=== PATIENT | female | born 1935 | race Two or more races ===

== ENCOUNTER 2018-08-17 13:53 | Inpatient (IN) | payer MEDICARE, OTHER ==
[~2018-08-17] VITALS: Ht 154.9 cm; Wt 65.3 kg
--- NOTE | 2018-08-17 13:55 | NUR ---
BIBRA FOR SYNCOPE WHILE IN WHEELCHAIR WITH SON, SON BEGAN CPR; NOW ALTERED, ALSO C/O GENERALIZED WEAKNESS x 2 DAYS AND PAINFUL URINATION. AOx1 UPON ARRIVAL IN ED. SON AT BEDSIDE. IV PERIPHERAL ACCESS AT LH 20G. TO ER BED 8, RESPIRATIONS EVEN AND UNLABORED, HOOKED TO MONITOR, CHANGED TO GOWN, PROVIDED WITH WARM BLANKET, AWAITING MD BLISS.
--- NOTE | 2018-08-17 14:18 | NUR ---
DR MACDONALD AT BEDSIDE
[2018-08-17] MEDS ORDERED: IV NS 0.9% 1,000 ML BAG IV ONE (14:30)
[2018-08-17 14:42] LABS: BASOPHILS % (AUTO) 0.5 % (0.0-2.0); EOSINOPHILS % (AUTO) 2.8 % (0.0-6.0); HEMATOCRIT 34 % (33-45); HEMOGLOBIN 11.9 g/dL (11.5-14.8); MEAN CORPUSCULAR HGB CONC 35 g/dl (31.0-36.0); MEAN CORPUSCULAR VOLUME 85 fL (82-100); MONOCYTES # (AUTO) 0.5 /CMM (0.1-1.30); MONOCYTES % (AUTO) 6.2 % (2.0-12.0); NEUTROPHILS # (AUTO) 5.7 /CMM (1.8-8.9); NEUTROPHILS % (AUTO) 77.5 % (43.0-81.0); PLATELET COUNT (AUTO) 193 /CMM (150-450); WHITE BLOOD COUNT (AUTO) 7.4 K/uL (4.3-11.0)
[2018-08-17] MEDS ORDERED: ROSU5TAB PO (14:43)
[2018-08-17] MEDS ORDERED: SENN-18 PO (14:43)
[2018-08-17] MEDS ORDERED: QUET25TA PO (14:43)
[2018-08-17] MEDS ORDERED: RANO500T3 PO (14:43)
[2018-08-17] MEDS ORDERED: CARV3.12 PO (14:43)
[2018-08-17] MEDS ORDERED: LISI10TA5 PO (14:43)
[2018-08-17] MEDS ORDERED: TRAZ-214 PO (14:43)
[2018-08-17] MEDS ORDERED: PANT40TA2 PO (14:43)
[2018-08-17] MEDS ORDERED: METO-295 PO (14:43)
[2018-08-17] MEDS ORDERED: FOLI1TAB16 PO (14:43)
[2018-08-17] MEDS ORDERED: MEMA10TA PO (14:43)
[2018-08-17] MEDS ORDERED: HYDR20VI4 PO (14:43)
[2018-08-17] MEDS ORDERED: CLON0.1T PO (14:43)
[2018-08-17 14:46] LABS: CARBON DIOXIDE 30 mmol/L (21-32); CHLORIDE 102 mmol/L (98-107); CREATININE 1.5 mg/dL (0.6-1.3); GLUCOSE 113 mg/dL (74-106); POTASSIUM 3.9 mmol/L (3.5-5.1); SODIUM SERUM 139 mmol/L (136-145); UREA NITROGEN, BLOOD 18 mg/dL (7-18)
[2018-08-17] MEDS ORDERED: CLON1TAB12 PO (14:47)
[2018-08-17] MEDS ORDERED: AMLO5TAB4 PO (14:47)
[2018-08-17] MEDS ORDERED: ASPI-605 PO (14:47)
[2018-08-17 15:00] LABS: ALANINE AMINOTRANSFERASE 19 U/L (12-78); ALBUMIN 3.7 g/dL (3.4-5.0); ALKALINE PHOSPHATASE 58 U/L (46-116); ASPARTATE AMINOTRANSFERASE 20 U/L (15-37); B-TYPE NATRIURETIC PEPTIDE 2799 PG/ML (0-125); BILIRUBIN,DIRECT 0.1 mg/dL (0.0-0.2); BILIRUBIN,TOTAL 0.4 mg/dL (0.2-1.0); TOTAL PROTEIN, SERUM 8.1 g/dL (6.4-8.2)
[2018-08-17 15:23] LABS: BILIRUBIN,URINE Negative (NEGATIVE); BLOOD, URINE Small Ery/uL (NEGATIVE); COLOR,URINE Yellow (YELLOW); KETONES,URINE Negative (NEGATIVE); LEUKOCYTE ESTERASE ,URINE Negative (NEGATIVE); NITRITE, URINE Negative (NEGATIVE); PH,URINE 7.5 (5.0-8.0); PROTEIN,URINE Negative (NEGATIVE); UGLUCOSE Negative (NEGATIVE); UROBILINOGEN,URINE 0.2 EU/dL (0.2)
[2018-08-17 15:33] LABS: APPEARANCE,URINE HAZY (CLEAR)
[2018-08-17 15:34] LABS: BACTERIA,URINE None seen /HPF (None Seen); SQUAMOUS EPITHELIAL CELL,UR Few /HPF (None Seen); WBC,URINE 0-2 /HPF (0-3)
--- NOTE | 2018-08-17 15:47 | NUR ---
ORDERS REC'D FROM DR. BERGERON FOR ADMISSION TO TELE.
[2018-08-17] MEDS ORDERED: hydrALAZINE HCL 10 MG TABLET PO ONE (17:30)
--- NOTE | 2018-08-17 17:42 | NUR ---
REPORT GIVEN TO MARTHA STROUD FOR ADMISSION
[2018-08-17] MEDS ORDERED: ATORVASTATIN 10 MG TABLET PO SCH (18:20)
--- NOTE | 2018-08-17 18:20 | NUR ---
MUD GRINDER NOTES RECEIVED PATIENT VIA GHADA CARROLL AT BEDSIDE. PATIENT SLOVENIAN SPEAKING. PATIENT ALERT, ORIENTED X1. ORIENTED TO ROOM. CALL LIGHT WITHIN REACH. BED IN LOW LOCKED POSITION. FAMILY REPORTS PATIENT WAS IN HER WHEELCHAIR WHERE SHE HAD A SYNCOPAL EPISODE 911 WAS CALLED AND PATIENT WAS BROUGHT TO ER. PATIENTS FAMILY REPORTS LAST TIME PATIENT WAS HOSPITALIZED WAS 3 MONTHS AGO DUE TO A FALL. PATIENT WITH PERIPHERAL IV LEFT AC INTACT PATENT. WILL ENDORSE TO PM SHIFT TODD.
[2018-08-17 18:30] VITALS: BP 149/71
--- NOTE | 2018-08-17 19:35 | NUR ---
TELE/RN OPENING NOTES PT RECEIVED AWAKE, FAMILY AT BEDSIDE. SAO TOMEAN SPEAKING. CONFUSED PER FAMILY AND SAO TOMEAN SPEAKING STAFF MEMBER. ON ROOM AIR, BREATHING EVEN AND UNLABORED. WAS AT CT FOR CHEST/ABDOMEN/PELVIS. AWAITING RESULTS. IV TO LEFT HAND #20 PATENT AND INTACT. ON TELE MONITOR SHOWING SR 90'S. HOB ELEVATED. REORIENTED PT TO ROOM AND CALL LIGHT. BED IN LOW/LOCKED POSITION WITH CALL LIGHT IN REACH. SIDE RAILS UPX3 AND BED ALARM ON FOR SAFETY. WILL CONTINUE TO MONITOR
[2018-08-17 20:00] VITALS: BP 152/89
--- NOTE | 2018-08-17 20:00 | NUR ---
CONTACT #'S FRANDY (SON) [phone] KERRY (GRANDSON) [phone]
[2018-08-17] MEDS ORDERED: TRAZODONE 50 MG TABLET PO PRN (22:00)
[2018-08-17] MEDS: SENNOSIDES 8.6 MG TABLET PO SCH (22:03)
[2018-08-18] VITALS: BP 144/75
[2018-08-18 04:00] VITALS: BP_SYST 156; BP_SYST 160; BP_DIAS 72; BP_DIAS 80
--- NOTE | 2018-08-18 04:00 | NUR ---
ORTHOSTATICS LAYING- 160/80, HR 78 SITTING- 156/72, HR 72 STANDING- UNABLE
--- NOTE | 2018-08-18 06:15 | NUR ---
CT CHEST/ABD/PELVIS RESULT RECEIVED CALL FROM RADIOLOGY, MD DINERO. NOTIFIED ME OF RESULT, SHOWING BLADDER WALL THICKENING WHICH MAY BE A MASS OR HEMATOMA. WILL ENDORSE TO DAY SHIFT RN TO NOTIFY HOSPITALIST
--- NOTE | 2018-08-18 06:57 | NUR ---
TELE/RN CLOSING NOTES PT RESTING COMFORTABLY IN BED. A/OX1. REMAINS ON ROOM AIR, BREATHING EVEN AND UNLABORED. IN NO ACUTE DISTRESS. REMAINS ON TELE MONITOR SHOWING SR WITH PVC 70. NO SIGNIFICANT CHANGES OVERNIGHT. TURNED/REPOSITIONED Q2H. IV TO LEFT HAND PATENT AND INTACT. BED REMAINS IN LOW/LOCKED POSITION WITH CALL LIGHT IN REACH. SIDE RAILS UPX3 AND BED ALARM ON FOR SAFETY. WILL ENDORSE TO DAY SHIFT RN TODD.
[2018-08-18 08:00] VITALS: BP 180/90
--- NOTE | 2018-08-18 08:00 | NUR ---
POULTRY FIELD SERVICE TECHNICIAN NOTES PATIENT IN BED RESTING NO SOB OR ACUTE DISTRESS NOTED. PATIENT ALERT, ORIENTED X1 CONFUSED. PERIPHERAL IV INTACT PATENT. BED IN LOW LOCKED POSITION. CALL LIGHT WITHIN REACH. WILL CONTINUE TO MONITOR.
[2018-08-18] MEDS: MEMANTINE HCL 5 MG TABLET PO SCH (08:42)
[2018-08-18] MEDS: ASPIRIN EC 81 MG TABLET.DR PO SCH (08:42)
[2018-08-18] MEDS: PANTOPRAZOLE 40 MG TABLET.DR PO SCH (08:42)
[2018-08-18] MEDS: clonazePAM 1 MG TABLET PO SCH ×2 (08:42→16:33)
[2018-08-18] MEDS ORDERED: FOLIC ACID 1 MG TABLET PO SCH (09:00)
[2018-08-18] MEDS ORDERED: LISINOPRIL (10MG) 10 MG TABLET PO SCH (09:00)
[2018-08-18] MEDS ORDERED: AMLODIPINE BESYLATE 5 MG TABLET PO SCH (09:00)
[2018-08-18] MEDS ORDERED: IV NS 0.9% 1,000 ML IV PRN (09:26)
[2018-08-18 10:48] LABS: MAGNESIUM 1.8 mg/dL (1.8-2.4); PHOSPHORUS 2.7 mg/dL (2.5-4.9)
[2018-08-18 11:04] LABS: FERRITIN 103 ng/mL (8-388); THYROID STIMULATING HORMONE 6.445 uIU/mL (0.358-3.74)
[2018-08-18 11:30] LABS: IRON, SERUM 43 ug/dl (50-175); TOTAL IRON BINDING CAPACITY 193 ug/dl (250-450)
[2018-08-18] MEDS ORDERED: CLONIDINE HCL 0.3 MG/24H PTWK 1 EA PATCH TD SCH (13:00)
[2018-08-18 16:00] VITALS: BP 163/79
[2018-08-18] MEDS: AMLODIPINE BESYLATE 5 MG TABLET PO SCH (17:19)
--- NOTE | 2018-08-18 18:40 | NUR ---
FACULTY DEAN NOTES PATIENT IN BED RESTING NO SOB OR ACUTE DISTRESS NOTED. ALERT, ORIENTED X1. ALL DUE MEDICATIONS ADMINISTERED. ALL NEEDS MET. WILL ENDORSE TO PM SHIFT TODD.
--- NOTE | 2018-08-18 19:35 | NUR ---
RN OPENING NOTES RECEIVED REPORT FROM DAYSHIFT RN. FOUND Pt AWAKE, RESTING IN BED. NO S/S OF ACUTE DISTRESS OR SOB NOTED. RESPIRATIONS EVEN AND UNLABORED. Pt IS A/OX1, VERY CONFUSED, BASELINE DEMENTIA, [place] SPEAKING ONLY. IV ACCESS ON RFA #20G, SL. SITTER ORDERED FOR Pt. ON TELE MONITOR. TELE READING SR/ST 103. SAFETY MEASURES IN PLACE. BED LOW, LOCKED, HOB ELEVATED, SIDE RAILS UP, BED ALARM ON. WILL CONTINUE TO MONITOR Pt's CONDITION AND SAFETY THROUGHOUT THE NIGHT.
[2018-08-18 20:00] VITALS: BP 141/67
[2018-08-18] MEDS: SENNOSIDES 8.6 MG TABLET PO SCH (22:41)
[2018-08-19] VITALS: BP 139/82
--- NOTE | 2018-08-19 07:00 | NUR ---
RN CLOSING NOTES NO SIGNIFICANT CHANGES IN Pt's CONDITION. Pt REMAINS STABLE AT THIS TIME. NO S/S OF ACUTE DISTRESS OR SOB NOTED DURING THE NIGHT. Pt IS CURRENTLY RESTING IN BED. RESPIRATIONS EVEN AND UNLABORED WITH EQUAL CHEST RISE AND FALL. ALL NEEDS MET AND ATTENDED TO. SAFETY MEASURES IN PLACE. SITTER AT BEDSIDE. BED LOW, LOCKED, HOB ELEVATED, SIDE RAILS UP, BED ALARM ON. TELE READING SR 95. WILL ENDORSE TO DAYSHIFT RN FOR Pt's TODD.
[2018-08-19 07:26] LABS: BASOPHILS % (AUTO) 0.6 % (0.0-2.0); EOSINOPHILS % (AUTO) 2.6 % (0.0-6.0); HEMATOCRIT 37 % (33-45); HEMOGLOBIN 12.6 g/dL (11.5-14.8); LYMPHOCYTES # (AUTO) 1.7 /CMM (0.8-4.8); LYMPHOCYTES % (AUTO) 24.7 % (20.0-44.0); MEAN CORPUSCULAR HGB CONC 34 g/dl (31.0-36.0); MEAN CORPUSCULAR VOLUME 85 fL (82-100); MONOCYTES # (AUTO) 0.5 /CMM (0.1-1.30); MONOCYTES % (AUTO) 6.8 % (2.0-12.0); NEUTROPHILS # (AUTO) 4.6 /CMM (1.8-8.9); NEUTROPHILS % (AUTO) 65.3 % (43.0-81.0); PLATELET COUNT (AUTO) 195 /CMM (150-450); RED BLOOD CELL COUNT(AUTO) 4.34 MIL/uL (4.0-5.2); WHITE BLOOD COUNT (AUTO) 7.1 K/uL (4.3-11.0)
[2018-08-19 07:29] LABS: ALANINE AMINOTRANSFERASE 16 U/L (12-78); ALBUMIN 3.7 g/dL (3.4-5.0); ALKALINE PHOSPHATASE 57 U/L (46-116); ASPARTATE AMINOTRANSFERASE 18 U/L (15-37); BILIRUBIN,TOTAL 0.5 mg/dL (0.2-1.0); CALCIUM, SERUM 9.1 mg/dL (8.5-10.1); CARBON DIOXIDE 29 mmol/L (21-32); CHLORIDE 103 mmol/L (98-107); CREATININE 1.1 mg/dL (0.6-1.3); GLUCOSE 109 mg/dL (74-106); MAGNESIUM 1.8 mg/dL (1.8-2.4); PHOSPHORUS 3.4 mg/dL (2.5-4.9); POTASSIUM 3.6 mmol/L (3.5-5.1); SODIUM SERUM 140 mmol/L (136-145); TOTAL PROTEIN, SERUM 7.9 g/dL (6.4-8.2); UREA NITROGEN, BLOOD 13 mg/dL (7-18)
[2018-08-19 08:00] VITALS: BP_SYST 106; BP_SYST 166; BP_DIAS 55; BP_DIAS 89
[2018-08-19] MEDS: PANTOPRAZOLE 40 MG TABLET.DR PO SCH (08:23)
[2018-08-19] MEDS: ASPIRIN EC 81 MG TABLET.DR PO SCH (08:24)
[2018-08-19] MEDS: CARVEDILOL 12.5 MG TABLET PO SCH ×2 (08:24→21:50)
[2018-08-19] MEDS: MEMANTINE HCL 5 MG TABLET PO SCH (08:24)
[2018-08-19] MEDS: clonazePAM 1 MG TABLET PO SCH ×2 (08:26→17:23)
[2018-08-19] MEDS: AMLODIPINE BESYLATE 5 MG TABLET PO SCH (17:23)
--- NOTE | 2018-08-19 18:31 | NUR ---
A NEW IV LINE TO THE LEFT FOREARM G22
--- NOTE | 2018-08-19 19:21 | NUR ---
NO CHANGES IN Pt's CONDITION. Pt STABLE on room air . NO S/S OF ACUTE DISTRESS OR SOB NOTED. ALL NEEDS ATTENDED TO. SAFETY MEASURES IN PLACE. SITTER AT BEDSIDE. BED LOW, LOCKED, HOB ELEVATED, SIDE RAILS UP, BED ALARM ON.WILL ENDORSE TO NEXT SHIFT FOR TODD.
--- NOTE | 2018-08-19 19:35 | NUR ---
RN OPENING NOTES RECEIVED REPORT FROM DAYSHIFT RN. FOUND Pt AWAKE, RESTING IN BED. NO S/S OF ACUTE DISTRESS OR SOB NOTED. RESPIRATIONS EVEN AND UNLABORED. Pt IS A/OX1, VERY CONFUSED, BASELINE DEMENTIA, [place] SPEAKING ONLY. IV ACCESS ON LFA #22G, SL. SAFETY MEASURES IN PLACE. BED LOW, LOCKED, HOB ELEVATED, SIDE RAILS UP, BED ALARM ON. WILL CONTINUE TO MONITOR Pt's CONDITION AND SAFETY THROUGHOUT THE NIGHT.
[2018-08-19 20:00] VITALS: BP 157/70
[2018-08-19 20:52] VITALS: BP 157/70
[2018-08-19] MEDS: SENNOSIDES 8.6 MG TABLET PO SCH (21:50)
[2018-08-19] MEDS: MUPIROCIN OINT 2% 22 GM TUBE SCH (21:52)
[2018-08-20 06:29] LABS: BASOPHILS % (AUTO) 0.4 % (0.0-2.0); EOSINOPHILS % (AUTO) 1.5 % (0.0-6.0); HEMATOCRIT 36 % (33-45); HEMOGLOBIN 12.5 g/dL (11.5-14.8); LYMPHOCYTES # (AUTO) 1.7 /CMM (0.8-4.8); LYMPHOCYTES % (AUTO) 19.7 % (20.0-44.0); MEAN CORPUSCULAR HGB CONC 34 g/dl (31.0-36.0); MEAN CORPUSCULAR VOLUME 84 fL (82-100); MONOCYTES # (AUTO) 0.7 /CMM (0.1-1.30); MONOCYTES % (AUTO) 7.8 % (2.0-12.0); NEUTROPHILS # (AUTO) 6.1 /CMM (1.8-8.9); NEUTROPHILS % (AUTO) 70.6 % (43.0-81.0); PLATELET COUNT (AUTO) 214 /CMM (150-450); RED BLOOD CELL COUNT(AUTO) 4.29 MIL/uL (4.0-5.2); WHITE BLOOD COUNT (AUTO) 8.7 K/uL (4.3-11.0)
--- NOTE | 2018-08-20 06:55 | NUR ---
RN CLOSING NOTES NO SIGNIFICANT CHANGES IN Pt's CONDITION. Pt REMAINS STABLE AT THIS TIME. NO S/S OF ACUTE DISTRESS OR SOB NOTED DURING THE NIGHT. Pt IS CURRENTLY RESTING IN BED. RESPIRATIONS EVEN AND UNLABORED WITH EQUAL CHEST RISE AND FALL. ALL NEEDS MET AND ATTENDED TO. SAFETY MEASURES IN PLACE. BED LOW, LOCKED, HOB ELEVATED, SIDE RAILS UP, BED ALARM ON. WILL ENDORSE TO DAYSHIFT RN FOR Pt's TODD.
[2018-08-20 07:09] LABS: CARBON DIOXIDE 28 mmol/L (21-32); CHLORIDE 105 mmol/L (98-107); GLUCOSE 125 mg/dL (74-106); MAGNESIUM 1.8 mg/dL (1.8-2.4); POTASSIUM 3.6 mmol/L (3.5-5.1); SODIUM SERUM 143 mmol/L (136-145); UREA NITROGEN, BLOOD 13 mg/dL (7-18)
[2018-08-20 08:00] VITALS: BP_SYST 104; BP_SYST 179; BP_DIAS 73; BP_DIAS 92
[2018-08-20] MEDS: CARVEDILOL 12.5 MG TABLET PO SCH ×2 (08:08→20:46)
[2018-08-20] MEDS: clonazePAM 1 MG TABLET PO SCH ×2 (08:08→16:04)
[2018-08-20] MEDS: PANTOPRAZOLE 40 MG TABLET.DR PO SCH (08:08)
[2018-08-20] MEDS: ASPIRIN EC 81 MG TABLET.DR PO SCH (08:08)
[2018-08-20] MEDS: MUPIROCIN OINT 2% 22 GM TUBE SCH ×2 (08:09→20:46)
[2018-08-20] MEDS: MEMANTINE HCL 5 MG TABLET PO SCH (08:09)
[2018-08-20] MEDS ORDERED: CLONIDINE HCL 0.1 MG TABLET PO PRN (12:30)
--- NOTE | 2018-08-20 12:30 | NUR ---
patient seen by DR. Sawyer. Family at bad side
[2018-08-20] MEDS: FLUCONAZOLE (100 MG) 100 MG TABLET PO SCH (13:55)
[2018-08-20] MEDS: DIVALPROEX SODIUM 125 MG TABLET.DR PO SCH ×2 (13:55→20:46)
[2018-08-20] MEDS: CEFTRIAXONE 1 G in IV D5W 50 ML IV SCH (14:30)
[2018-08-20 16:00] VITALS: BP 174/98
--- NOTE | 2018-08-20 16:00 | NUR ---
PRN Clonidine given due to BP 170/74
[2018-08-20] MEDS: AMLODIPINE BESYLATE 5 MG TABLET PO SCH (17:58)
--- NOTE | 2018-08-20 18:26 | NUR ---
PATIENT IN BED, REMAINS CONFUSED , ORIENTED X1 . NO S/S OF ACUTE DISTRESS OR SOB NOTED DURING THE SHIFT.RESPIRATIONS EVEN AND UNLABORED ON ROOM AIR. ALL NEEDS MET AND ATTENDED TO. SAFETY MEASURES IN PLACE. BED LOW, LOCKED, HOB ELEVATED, SIDE RAILS UP, BED ALARM ON. WILL ENDORSE TO NEXT SHIFT RN FOR Pt's TODD.
--- NOTE | 2018-08-20 19:30 | NUR ---
MS RN NOTES RECEIVED ON BED AWAKE,CONFUSED,A/O X1,TOOK OFF HER DIAPER AND THROW IT ON THE FLOOR.HAD BOWEL MOVEMENT,CLEAN AND APPLIES REMEDY/MEPILEX ON SACRAL AREA FOR REDNESS.SALINE LOCK LFA SECURED WITH ARM SLEEVE.ISOLATION PRECAUTION OBSERVED FOR MRSA NARES.BED ALARM FOR SAFETY.CALL LIGHT IN REACH.WILL CONTINUE TO MONITOR STATUS.
[2018-08-20 20:00] VITALS: BP 161/82
[2018-08-20] MEDS: SENNOSIDES 8.6 MG TABLET PO SCH (20:47)
--- NOTE | 2018-08-20 23:00 | NUR ---
MS RN NOTES CALM AND QUIET THIS TIME,SIDE RAILS UP X2 FOR SAFETY.
--- NOTE | 2018-08-21 05:00 | NUR ---
MS RN NOTES NO SIGNIFICANT CHANGE IN STATUS.BM SOFT X3,SACRAL REDNESS MANAGE WITH REMEDY.IN NO ACUTE DISTRESS.POSSIBLE D/C TODAY WHEN MEDICALLY STABLE.
--- NOTE | 2018-08-21 07:18 | NUR ---
MS RN NOTES ENDORSED TO RENATO STROUD FOR TODD
--- NOTE | 2018-08-21 07:30 | NUR ---
M/S RN NOTES PATIENT RESTING IN BED, ALERT AND ORIENTED X 1. NO RESPIRATORY DISTRESS NOTED. DENIES AND PAIN AT THIS TIME. SKIN WARM TO TOUCH. IV SL ON LFA #22G, INTACT AND PATENT, NO REDNESS, NO INFILTRATION NOTED. BED ON LOWEST LOCKED POSITION, CALL LIGHT WITHIN REACH. WILL CONTINUE TO MONITOR.
[2018-08-21 08:00] VITALS: BP 158/83
[2018-08-21] MEDS: FLUCONAZOLE (100 MG) 100 MG TABLET PO SCH (08:37)
[2018-08-21] MEDS: MEMANTINE HCL 5 MG TABLET PO SCH (08:38)
[2018-08-21] MEDS: CARVEDILOL 12.5 MG TABLET PO SCH ×2 (08:38→21:48)
[2018-08-21] MEDS: DIVALPROEX SODIUM 125 MG TABLET.DR PO SCH (08:38)
[2018-08-21] MEDS: clonazePAM 1 MG TABLET PO SCH ×2 (08:38→17:04)
[2018-08-21] MEDS: ASPIRIN EC 81 MG TABLET.DR PO SCH (08:38)
[2018-08-21] MEDS: PANTOPRAZOLE 40 MG TABLET.DR PO SCH (08:40)
[2018-08-21] MEDS: MUPIROCIN OINT 2% 22 GM TUBE SCH ×2 (08:52→21:59)
[2018-08-21] MEDS: CEFTRIAXONE 1 G in IV D5W 50 ML IV SCH (13:33)
[2018-08-21 16:00] VITALS: BP 122/67
[2018-08-21] MEDS: AMLODIPINE BESYLATE 5 MG TABLET PO SCH (17:04)
--- NOTE | 2018-08-21 18:18 | NUR ---
M/S RN NOTES PATIENT RESTING IN BED, ALERT AND ORIENTED X 1, NO RESPIRATORY DISTRESS NOTED, NO COMPLAINT OF PAINAT THIS TIME. SKIN WARM TO TOUCH, IV SL ON RAC #22G, INTACT AND PATENT. BED ON LOWEST LOCKED POSITION, CALL LIGHT WITHIN REACH. WILL ENDORSE TO ONCOMING NURSE.
--- NOTE | 2018-08-21 19:20 | NUR ---
MS/RN NOTES RECEIVED PT. LYING IN BED. PT. IS AWAKE, ALERT AND ORIENTED TO SELF. BREATHING EVEN AND UNLABORED ON ROOM AIR. NO SOB, RESPIRATORY DISTRESS OR COMPLAINTS OF PAIN NOTED AT THIS TIME. PT. WITH RIGHT AC 22 GAUGE IV SALINE LOCK PRESENT, PATENT AND INTACT. BED LOCKED AND IN LOWEST POSITION, SIDE RAILS UP X3, BED ALARM ON, CALL LIGHT WITHIN REACH, WILL CONTINUE TO MONITOR.
[2018-08-21 20:00] VITALS: BP 156/85
[2018-08-21] MEDS: SENNOSIDES 8.6 MG TABLET PO SCH (21:47)
--- NOTE | 2018-08-22 01:10 | NUR ---
MS/RN NOTES PT. IS LYING IN BED. PT. IS AWAKE, ALERT AND ORIENTED TO SELF. BREATHING EVEN AND UNLABORED ON ROOM AIR. NO SOB, RESPIRATORY DISTRESS OR COMPLAINTS OF PAIN NOTED AT THIS TIME. PT. WITH RIGHT AC 22 GAUGE IV SALINE LOCK PRESENT, PATENT AND INTACT. PT. WAS ATTEMPTING TO PULL OUT IV ACCESS AND ATTEMPTING TO GET OUT OF BED, PT. IS FALL RISK. PT. NOW WITH BILATERAL SOFT WRIST RESTRAINTS PRESENT AND INTACT. CIRCULATION CHECK PERFORMED. BED LOCKED AND IN LOWEST POSITION, SIDE RAILS UP X3, BED ALARM ON. GAVE REPORT AND ENDORSED PT. TO LUANNE MURILLO FOR CONTINUITY OF CARE.
--- NOTE | 2018-08-22 01:15 | NUR ---
CONTINUITY OF CARE Received patient in bed, awake, appears anxious. Patient attempted to get out from bed and pulled her IV peripheral cath multiple times per report. Patient is A/O to self only, poor judgment and concentration. Maintained safety, will cont to reassess the need for bilateral soft wrist restraints.
[2018-08-22] MEDS ORDERED: Z GUARD REMEDY 2 OZ OINT TP PRN (02:00)
[2018-08-22 06:12] LABS: BASOPHILS % (AUTO) 0.6 % (0.0-2.0); EOSINOPHILS % (AUTO) 2.9 % (0.0-6.0); HEMATOCRIT 33 % (33-45); HEMOGLOBIN 11.6 g/dL (11.5-14.8); LYMPHOCYTES # (AUTO) 2.1 /CMM (0.8-4.8); LYMPHOCYTES % (AUTO) 27.7 % (20.0-44.0); MEAN CORPUSCULAR HGB CONC 35 g/dl (31.0-36.0); MEAN CORPUSCULAR VOLUME 84 fL (82-100); MONOCYTES # (AUTO) 0.5 /CMM (0.1-1.30); MONOCYTES % (AUTO) 7.2 % (2.0-12.0); NEUTROPHILS # (AUTO) 4.6 /CMM (1.8-8.9); NEUTROPHILS % (AUTO) 61.6 % (43.0-81.0); PLATELET COUNT (AUTO) 234 /CMM (150-450); RED BLOOD CELL COUNT(AUTO) 3.96 MIL/uL (4.0-5.2); WHITE BLOOD COUNT (AUTO) 7.4 K/uL (4.3-11.0)
--- NOTE | 2018-08-22 06:19 | NUR ---
END OF SHIFT REPORT Patient in bed. Stable oxygen saturation on RA. On IV antibiotic as scheduled, VSS. A/O to self only when awake, with confusion, unable to participate with care, poor concentration and judgment, pulling out IV lines, not follow command. Maintained bilateral soft wrist restraint in place, reassessment every 2 hours, CSM intact in both hands. Contact precaution maintained, PPE utilized.
[2018-08-22 06:22] LABS: CALCIUM, SERUM 9.1 mg/dL (8.5-10.1); CARBON DIOXIDE 29 mmol/L (21-32); CHLORIDE 105 mmol/L (98-107); CREATININE 1.1 mg/dL (0.6-1.3); GLUCOSE 111 mg/dL (74-106); SODIUM SERUM 143 mmol/L (136-145); UREA NITROGEN, BLOOD 24 mg/dL (7-18)
--- NOTE | 2018-08-22 07:30 | NUR ---
RN MS NOTES PT IN BED, ASLEEP, EASY TO AROUSE, ALERT TO SELF, NO FACIAL GRIMACING OR MOANING, NOT IN DISTRESS, SAFETY PRECAUTIONS OBSERVED, CALL LIGHT WITHIN REACH, SEEN BY DR. AVE MD SPOKE WITH PT'S SON OCTAVIO FOR PLAN OF CARE.
[2018-08-22 08:00] VITALS: BP 163/82
[2018-08-22] MEDS: FLUCONAZOLE (100 MG) 100 MG TABLET PO SCH (08:19)
[2018-08-22] MEDS: MEMANTINE HCL 5 MG TABLET PO SCH (08:19)
[2018-08-22 08:20] VITALS: BP 163/82
[2018-08-22] MEDS: ASPIRIN EC 81 MG TABLET.DR PO SCH (08:20)
[2018-08-22] MEDS: clonazePAM 1 MG TABLET PO SCH (08:20)
[2018-08-22] MEDS: PANTOPRAZOLE 40 MG TABLET.DR PO SCH (08:20)
[2018-08-22] MEDS: CARVEDILOL 12.5 MG TABLET PO SCH (08:20)
[2018-08-22] MEDS: MUPIROCIN OINT 2% 22 GM TUBE SCH (08:25)
[2018-08-22] MEDS: CEFTRIAXONE 1 G in IV D5W 50 ML IV SCH (12:42)
--- NOTE | 2018-08-22 13:35 | NUR ---
RN MS NOTES PT IN BED, AWAKE, ALERT AND VERBALLY RESPONSIVE, NOT IN DISTRESS, SEEN BY DR. GREENBERG, PLAN OF CARE DISCUSSED WITH FAMILY, DISCHARGE ORDER GIVEN, PT TO D/C HOME WITH HOSPICE, DISCHARGE AND MEDICATION INSTRUCTIONS PROVIDED TO PT'S SON SUN, VERBALIZED UNDERSTANDING, SKIN CHECK DONE, BELONGINGS ACCOUNTED FOR, ASSISTED TO WHEELCHAIR, ASSISTED BY CELL CLEANER TO HOSPITAL LOBBY, LEFT VIA PRIVATE CAR WITH SON SUN AND GRANDADELINE BAILEY, LEFT IN STABLE CONDITION.
== END 2018-08-22 13:30 | disposition hospice, home (50) | DRG 689 ==
LOC: EDBD 13:56 → EDSEX 13:56 → ER 13:56 → TELE 17:29 → MED 08-19 09:03
PROVIDERS: ADMIT Legal Medicine; ATTEND Legal Medicine
DX: N39.0 Urinary tract infection, site not specified (principal); G93.41 Metabolic encephalopathy; F03.91 Unspecified dementia, unspecified severity, with behavioral disturbance; I50.32 Chronic diastolic (congestive) heart failure; I25.10 Atherosclerotic heart disease of native coronary artery without angina pectoris; E78.5 Hyperlipidemia, unspecified; K21.9 Gastro-esophageal reflux disease without esophagitis; G47.9 Sleep disorder, unspecified; F41.9 Anxiety disorder, unspecified; R53.1 Weakness; E04.1 Nontoxic single thyroid nodule; D64.9 Anemia, unspecified; N32.9 Bladder disorder, unspecified; I11.0 Hypertensive heart disease with heart failure; N28.1 Cyst of kidney, acquired; N32.89 Other specified disorders of bladder
CPT/HCPCS: 36415; 70450-TC; 71045-TC; 71250-TC; 76536-TC; 76856-TC; 80048-TC; 80053-TC; 80076-TC; 81000-TC; 82728-TC; 83540-TC; 83605-TC; 83735-TC; 83880; 84100-TC; 84439-TC; 84443-TC; 84484-TC; 85025-TC; 85730-TC; 87040-TC; 87081-TC; 87086-TC; 92526; 92611-TC; 93307-TC; 97530-TC; G0378; J0696; J7030; J7060

== ENCOUNTER 2018-12-13 13:34 | Inpatient (IN) | payer MEDICARE, OTHER ==
[~2018-12-13] VITALS: Ht 154.9 cm; Wt 53.5 kg
[~2018-12-13 13:34] MED LIST: AMLO5TAB4 PO; ASPI-605 PO; CARV3.12 PO; CLON0.1T PO; CLON1TAB12 PO; FOLI1TAB16 PO; HYDR20VI4 PO; LISI10TA5 PO; MEMA10TA PO; METO-295 PO; PANT40TA2 PO; QUET25TA PO; RANO500T3 PO; ROSU5TAB PO; SENN-18 PO; TRAZ-214 PO
--- NOTE | 2018-12-13 13:53 | NUR ---
PT REC'D TO ER C/O BURNING DURING URINATION. HAS DEMETIA AND SPEAKS FARSI FAMILY AT BEDSIDE UA GIVEN PT IN GOWN AWAITING EVALUATION BY ER PROVIDER.
[2018-12-13] MEDS ORDERED: ASPI-1152 PO (14:08)
[2018-12-13] MEDS ORDERED: HYDR-4076 PO (14:08)
[2018-12-13] MEDS ORDERED: LEVO75TA7 PO (14:08)
[2018-12-13] MEDS ORDERED: DOCU-141 PO (14:09)
[2018-12-13] MEDS ORDERED: IV NS 0.9% 500 ML BAG IV ONE (14:30)
--- NOTE | 2018-12-13 14:41 | NUR ---
iv started 20g left ac labs and cultures drawn sernt o lab ua sent to lab
[2018-12-13 14:44] LABS: BASOPHILS % (AUTO) 0.3 % (0.0-2.0); EOSINOPHILS % (AUTO) 0.1 % (0.0-6.0); HEMATOCRIT 34 % (33-45); HEMOGLOBIN 11.3 g/dL (11.5-14.8); LYMPHOCYTES # (AUTO) 1.2 /CMM (0.8-4.8); LYMPHOCYTES % (AUTO) 14.5 % (20.0-44.0); MEAN CORPUSCULAR HGB CONC 34 g/dl (31.0-36.0); MEAN CORPUSCULAR VOLUME 85 fL (82-100); MONOCYTES # (AUTO) 0.4 /CMM (0.1-1.30); NEUTROPHILS # (AUTO) 6.8 /CMM (1.8-8.9); NEUTROPHILS % (AUTO) 80.1 % (43.0-81.0); PLATELET COUNT (AUTO) 242 /CMM (150-450); RED BLOOD CELL COUNT(AUTO) 3.94 MIL/uL (4.0-5.2); WHITE BLOOD COUNT (AUTO) 8.4 K/uL (4.3-11.0)
[2018-12-13 14:54] LABS: CALCIUM, SERUM 8.9 mg/dL (8.5-10.1); CARBON DIOXIDE 31 mmol/L (21-32); CHLORIDE 101 mmol/L (98-107); CREATININE 1.8 mg/dL (0.6-1.3); GLUCOSE 121 mg/dL (74-106); POTASSIUM 3.8 mmol/L (3.5-5.1); SODIUM SERUM 138 mmol/L (136-145); UREA NITROGEN, BLOOD 27 mg/dL (7-18)
[2018-12-13 15:01] LABS: ALANINE AMINOTRANSFERASE 12 U/L (12-78); ALBUMIN 3.4 g/dL (3.4-5.0); ALKALINE PHOSPHATASE 50 U/L (46-116); ASPARTATE AMINOTRANSFERASE 24 U/L (15-37); BILIRUBIN,DIRECT 0.1 mg/dL (0.0-0.2); BILIRUBIN,TOTAL 0.3 mg/dL (0.2-1.0)
[2018-12-13 15:02] LABS: ACETAMINOPHEN < 2 ug/ml (10-30); SALICYLATE 1.8 mg/dL (2.8-20.0)
[2018-12-13 15:34] LABS: SERUM AMMONIA 6 umol/L (11-32)
[2018-12-13 15:50] LABS: B-TYPE NATRIURETIC PEPTIDE 1404 PG/ML (0-125); LIPASE 140 U/L (73-393)
--- NOTE | 2018-12-13 16:17 | NUR ---
PT BP 201/[address] DELACRUZ NO MEDS AT THIS TIME VSS
[2018-12-13 16:36] LABS: APPEARANCE,URINE Clear (CLEAR); BILIRUBIN,URINE Negative (NEGATIVE); BLOOD, URINE Negative Ery/uL (NEGATIVE); COLOR,URINE Yellow (YELLOW); KETONES,URINE Negative (NEGATIVE); LEUKOCYTE ESTERASE ,URINE Small (NEGATIVE); NITRITE, URINE Negative (NEGATIVE); PROTEIN,URINE Negative (NEGATIVE); UGLUCOSE Negative (NEGATIVE); UROBILINOGEN,URINE 0.2 EU/dL (0.2)
[2018-12-13 16:45] LABS: BACTERIA,URINE 1+ /HPF (None Seen); MUCUS,URINE Moderate /LPF (None Seen); RBC,URINE NONE SEEN /HPF (0-2); SQUAMOUS EPITHELIAL CELL,UR Moderate /HPF (None Seen)
[2018-12-13] MEDS ORDERED: CEFTRIAXONE 1 G in IV D5W 50 ML IV STA (16:52)
[2018-12-13] MEDS ORDERED: ONDANSETRON HCL/PF 4 MG/2 ML VIAL IVP ONE (17:00)
[2018-12-13] MEDS ORDERED: MAG HYDROX/AL HYDROX/SIMETH 30 ML UDC PO ONE (17:00)
[2018-12-13] MEDS ORDERED: FAMOTIDINE/PF INJ 20 MG/2 ML VIAL IV ONE ×2 (17:00→17:18)
[2018-12-13] MEDS ORDERED: LIDOCAINE VISCOUS 2% UD 15 ML UDC MM ONE (17:00)
--- NOTE | 2018-12-13 17:08 | NUR ---
Called [facility] Kenny SHAH solutions consultant for Dr. Sawyer regarding patient. Awaiting for MD to call back.
[2018-12-13] MEDS ORDERED: CEFTRIAXONE 1GM BAG (ER ONLY) 50 ML IV ONE (17:14)
[2018-12-13] MEDS ORDERED: LIDOCAINE VISCOUS 2% UD 15 ML UDC ONE (17:18)
[2018-12-13] MEDS ORDERED: ONDANSETRON HCL/PF 4 MG/2 ML VIAL ONE (17:18)
[2018-12-13] MEDS ORDERED: MAG HYDROX/AL HYDROX/SIMETH 30 ML UDC ONE (17:18)
[2018-12-13] MEDS ORDERED: hydrALAZINE HCL IV 20 MG VIAL IV ONE (17:30)
--- NOTE | 2018-12-13 18:11 | NUR ---
called house sup for bed
[2018-12-13] MEDS ORDERED: hydrALAZINE HCL IV 20 MG VIAL ONE (19:26)
--- NOTE | 2018-12-13 19:30 | NUR ---
new order from dr mcdonald hydralazine 10 mg iv x one now. made aware of high BP with above order, noted
[2018-12-13] MEDS ORDERED: MAGNESIUM HYDROXIDE 30 ML UDC PO PRN (20:00)
[2018-12-13] MEDS ORDERED: ACETAMINOPHEN 325 MG TABLET PO PRN (20:00)
[2018-12-13] MEDS ORDERED: CLONIDINE HCL 0.1 MG TABLET PO PRN (20:00)
[2018-12-13] MEDS ORDERED: ONDANSETRON HCL/PF 4 MG/2 ML VIAL IVP PRN (20:00)
[2018-12-13] MEDS ORDERED: MAG HYDROX/AL HYDROX/SIMETH 30 ML UDC PO PRN (20:00)
[2018-12-13] MEDS ORDERED: Z GUARD REMEDY 2 OZ OINT TP PRN (20:00)
[2018-12-13] MEDS ORDERED: HYDROCODONE/APAP 5/325MG 1 EACH TABLET PO PRN (20:00)
[2018-12-13] MEDS ORDERED: ZOLPIDEM TARTRATE 5 MG TABLET PO PRN (20:00)
--- NOTE | 2018-12-13 20:02 | NUR ---
pt assigned to [facility] 204-2
[2018-12-13] MEDS ORDERED: hydrALAZINE HCL IV 20 MG VIAL IV STA (20:54)
--- NOTE | 2018-12-13 21:07 | NUR ---
PT REASSIGEND PT 304-2
--- NOTE | 2018-12-13 21:15 | NUR ---
REPORT GIVEN TO LUANNE GALARZA FOR CONTINUITY OF CARE.
[2018-12-13 21:30] VITALS: BP 140/74
--- NOTE | 2018-12-13 21:30 | NUR ---
SUPERVISOR ADVERTISING DISPATCH CLERKS NOTE PT ARRIVED TO UNIT VIA GURNEY ACCOMPANIED BY FAMILY AND ER PERSONNEL. PT A/O X1, FARSI SPEAKING DAUGHTER TRANSLATING. NO SIGNS OF SOB OR DISTRESS, NO INDICATIONS OF PAIN. TELE MONITOR ST 103. IV IN R HAND #[address] S/L. ALL CURRENT NEEDS ATTENDED TO. BED LOW, LOCKED, UPPER RAILS UP, AND CALL LIGHT WITHIN REACH, PT TO BE REPOSITIONED PER PROTOCOL. BODY ASSESSMENT DONE, PHOTOS TAKEN FOR BASELINE. ALL BELONGINGS ACCOUNTED AND SIGNED FOR. WILL CONT. TO MONITOR.
--- NOTE | 2018-12-13 21:40 | NUR ---
PT WAS TRANSFERRED TO [facility] UNDER ACLS
[2018-12-13] MEDS: SENNOSIDES 8.6 MG TABLET PO SCH (22:00)
--- NOTE | 2018-12-13 22:25 | NUR ---
RUBBER EXTRUSION MACHINE OPERATOR NOTE LALA CAO, PER FAMILY MEMBER THE PT HAS BEEN HAVING TROUBLE SWALLOWING ALL FOOD THAT HAS BEEN CRUSHED AND MASHED. WILL PUT SWALLOW EVAL. FOR AM AND CONT. TO MONITOR.
[2018-12-14] VITALS: BP 130/89
[2018-12-14 04:00] VITALS: BP 140/85
--- NOTE | 2018-12-14 06:45 | NUR ---
FURNITURE RENTAL CONSULTANT NOTE PT A/O X1, AWAKE, FARSI SPEAKING. WITH SITTER AT BEDSIDE. NO SIGNS OF SOB OR DISTRESS, NO INDICATIONS OF PAIN. TELE MONITOR ST 106. IV IN R HAND #[address] S/L. ALL CURRENT NEEDS ATTENDED TO. BED LOW, LOCKED, UPPER RAILS UP, AND CALL LIGHT WITHIN REACH, PT REPOSITIONED PER PROTOCOL. WILL CONT. TO MONITOR AND ENDORSE TO NEXT SHIFT FOR TODD.
--- NOTE | 2018-12-14 07:59 | NUR ---
INTERFACE ANALYST NOTES PATIENT RECEIVED RESTING INSIDE ROOM. AWAKE, ALERT AND ORIENTED X 1, VERBALLY RESPONSIVE AND RESPONDS TO VERBAL AND TACTILE STIMULI. DENIES ANY PAIN OR DISCOMFORT. PATIENT RESTLESS, NOTED WITH CONTINUOUS ATTEMPTS TO REMOVE IV FROM RIGHT HAND. GERISLEEVE IN PLACE. SITTER AT BEDSIDE. WILL CONTINUE TO REORIENT AND REDIRECT PATIENT NEEDED. CONTINUE ON TELE. NIKE ATHLETE IN PLACE. SR 98. AWAITING SWALLOW EVAL PER SHIFT CHANGE REPORT. WILL CONTINUE TO MONITOR. BED LOCKED AND IN LOW POSITION. BILATERAL UPPER SIDE RAILS UP AND LOCKED. CALL LIGHT WITHIN EASY REACH
[2018-12-14] MEDS ORDERED: Medication Not On Formulary EA (Ranolazine (Ranexa) 500 MG) PO SCH (09:00)
[2018-12-14] MEDS: hydrALAZINE HCL 25 MG TABLET PO SCH ×2 (09:36→17:32)
[2018-12-14] MEDS: LEVOTHYROXINE SODIUM 75 MCG TABLET PO SCH ×2 (09:37→17:32)
[2018-12-14] MEDS: PANTOPRAZOLE 40 MG TABLET.DR PO SCH (09:37)
[2018-12-14] MEDS: CARVEDILOL 3.125 MG TABLET PO SCH ×2 (09:37→17:32)
[2018-12-14] MEDS: FOLIC ACID 1 MG TABLET PO SCH (09:37)
[2018-12-14] MEDS: DOCUSATE SODIUM 100 MG CAPSULE PO SCH (09:37)
[2018-12-14] MEDS: ASPIRIN EC 81 MG TABLET.DR PO SCH (09:37)
[2018-12-14] MEDS: MEMANTINE HCL 5 MG TABLET PO SCH (09:37)
[2018-12-14] MEDS: QUETIAPINE FUMARATE 25 MG TABLET PO SCH ×2 (09:37→17:32)
[2018-12-14] MEDS: IV D5/ 0.9% NACL 1,000 ML IV PRN (12:06)
[2018-12-14 12:13] LABS: BASOPHILS % (AUTO) 0.3 % (0.0-2.0); EOSINOPHILS % (AUTO) 0.4 % (0.0-6.0); HEMATOCRIT 34 % (33-45); HEMOGLOBIN 11.4 g/dL (11.5-14.8); LYMPHOCYTES # (AUTO) 1.7 /CMM (0.8-4.8); LYMPHOCYTES % (AUTO) 20.7 % (20.0-44.0); MEAN CORPUSCULAR HGB CONC 34 g/dl (31.0-36.0); MEAN CORPUSCULAR VOLUME 84 fL (82-100); MONOCYTES # (AUTO) 0.7 /CMM (0.1-1.30); NEUTROPHILS # (AUTO) 5.9 /CMM (1.8-8.9); NEUTROPHILS % (AUTO) 70.6 % (43.0-81.0); PLATELET COUNT (AUTO) 231 /CMM (150-450); RED BLOOD CELL COUNT(AUTO) 3.98 MIL/uL (4.0-5.2); WHITE BLOOD COUNT (AUTO) 8.3 K/uL (4.3-11.0)
[2018-12-14 12:18] LABS: ALANINE AMINOTRANSFERASE 10 U/L (12-78); ALBUMIN 3.4 g/dL (3.4-5.0); ALKALINE PHOSPHATASE 44 U/L (46-116); ASPARTATE AMINOTRANSFERASE 20 U/L (15-37); BILIRUBIN,TOTAL 0.3 mg/dL (0.2-1.0); CALCIUM, SERUM 8.8 mg/dL (8.5-10.1); CARBON DIOXIDE 26 mmol/L (21-32); CHLORIDE 101 mmol/L (98-107); CREATININE 1.5 mg/dL (0.6-1.3); GLUCOSE 139 mg/dL (74-106); MAGNESIUM 1.8 mg/dL (1.8-2.4); PHOSPHORUS 2.9 mg/dL (2.5-4.9); POTASSIUM 3.5 mmol/L (3.5-5.1); SODIUM SERUM 136 mmol/L (136-145); TOTAL PROTEIN, SERUM 6.9 g/dL (6.4-8.2); UREA NITROGEN, BLOOD 20 mg/dL (7-18)
[2018-12-14 12:37] LABS: CHOLESTEROL 104 mg/dL (<200); HDL CHOLESTEROL 50 mg/dL (40-60); LDL 43 mg/dL (0-99); TRIGLYCERIDES 57 mg/dL (30-150)
[2018-12-14] MEDS: ATORVASTATIN 10 MG TABLET PO SCH (17:32)
[2018-12-14] MEDS: NITROGLYCERIN PACKET 1 GM PACKET TOP SCH (17:33)
[2018-12-14] MEDS: CEFTRIAXONE 1 G in IV D5W 50 ML IV SCH (17:39)
--- NOTE | 2018-12-14 18:54 | NUR ---
MS RN NOTES URINE COLLECTED VIA STRAIGHT CATH PER DR SWIFT'S ORDER AND SENT TO LAB
--- NOTE | 2018-12-14 18:55 | NUR ---
MS RN NOTES PATIENT RESTING INSIDE ROOM. AWAKE, ALERT AND ORIENTED X 1, VERBALLY RESPONSIVE AND RESPONDS TO VERBAL AND TACTILE STIMULI. NO ACUTE DISTRESS. DENIES ANY PAIN OR DISCOMFORT. IV INTACT AND PATENT, IVF RUNNING ORDERED. SITTER AT BEDSIDE. PATIENT KEPT CLEAN, DRY AND COMFORTABLE. PROVIDED WITH CALM, SAFE, HAZARD-FREE ENVIRONMENT. WILL ENDORSE TO INCOMING SHIFT FOR TODD
--- NOTE | 2018-12-14 19:05 | NUR ---
MS RN NOTE PM OPENING NOTE BEDSIDE REPORT RECIEVED FROM FREDERIC STROUD. PATIENT IN BED RESTING INSIDE ROOM. AWAKE, ALERT AND ORIENTED X 1 PER FAMILY PATIENT SPEAKS PAS[place]. FAMILY AT THE BEDSIDE POC REVIEWED QUESTIONS CONCERNS ADDRESSED.PT IN NO ACUTE DISTRESS. FLACC SCALE OF 1. IV INTACT AND PATENT, IVF RUNNING ORDERED TO RIGHT AC18 GAUGE SOME BRUISING AT SITE NOTED WILL CONT TO MONITOR,, PATIENT STILL HAS IV TO RIGHT HAND #20 INTACT FLUSHING WELL WITH NO S/S OF COMPLICATIONS. MACO BONILLA CNA AT BEDSIDE. WILL CONT TO MONITOR.
[2018-12-14 19:33] LABS: BILIRUBIN,URINE NEGATIVE (NEGATIVE); BLOOD, URINE NEGATIVE Ery/uL (NEGATIVE); COLOR,URINE YELLOW (YELLOW); KETONES,URINE NEGATIVE (NEGATIVE); LEUKOCYTE ESTERASE ,URINE NEGATIVE (NEGATIVE); NITRITE, URINE NEGATIVE (NEGATIVE); PROTEIN,URINE NEGATIVE (NEGATIVE); UGLUCOSE NEGATIVE (NEGATIVE); UROBILINOGEN,URINE 0.2 EU/dL (0.2)
[2018-12-14 19:35] LABS: APPEARANCE,URINE CLEAR (CLEAR)
[2018-12-14 19:55] VITALS: BP 130/75
[2018-12-14 20:13] LABS: EOSINOPHIL,URINE None Seen
[2018-12-14] MEDS: SENNOSIDES 8.6 MG TABLET PO SCH (22:01)
[2018-12-15] MEDS: NITROGLYCERIN PACKET 1 GM PACKET TOP SCH ×5 (00:11→23:01)
[2018-12-15] MEDS: IV D5/ 0.9% NACL 1,000 ML IV PRN (01:52)
[2018-12-15 05:58] VITALS: BP 182/78
[2018-12-15] MEDS: LEVOTHYROXINE SODIUM 75 MCG TABLET PO SCH ×2 (06:05→16:57)
[2018-12-15] MEDS: PANTOPRAZOLE 40 MG TABLET.DR PO SCH (06:06)
--- NOTE | 2018-12-15 07:00 | NUR ---
RN PM CLOSING NOTE. PATIENT SEEN IN NO APPARENT DDISTRESS. DENIES PAIN. IN BED WITH EYES CLOSED. SAFETY MESARUES IN PLACE. WILL ENDORSE POC AND REPORT TO DAY NURSE. SITTER AT THE BEDSIDE.
[2018-12-15 07:32] LABS: BASOPHILS % (AUTO) 0.3 % (0.0-2.0); EOSINOPHILS % (AUTO) 1.7 % (0.0-6.0); HEMATOCRIT 33 % (33-45); HEMOGLOBIN 11.2 g/dL (11.5-14.8); LYMPHOCYTES # (AUTO) 1.9 /CMM (0.8-4.8); LYMPHOCYTES % (AUTO) 26.2 % (20.0-44.0); MEAN CORPUSCULAR HGB CONC 34 g/dl (31.0-36.0); MEAN CORPUSCULAR VOLUME 84 fL (82-100); MONOCYTES # (AUTO) 0.6 /CMM (0.1-1.30); MONOCYTES % (AUTO) 8.3 % (2.0-12.0); NEUTROPHILS # (AUTO) 4.5 /CMM (1.8-8.9); NEUTROPHILS % (AUTO) 63.5 % (43.0-81.0); PLATELET COUNT (AUTO) 214 /CMM (150-450); RED BLOOD CELL COUNT(AUTO) 3.89 MIL/uL (4.0-5.2); WHITE BLOOD COUNT (AUTO) 7.1 K/uL (4.3-11.0)
[2018-12-15 07:50] LABS: ALBUMIN 3.2 g/dL (3.4-5.0); BILIRUBIN,TOTAL 0.3 mg/dL (0.2-1.0); CALCIUM, SERUM 8.5 mg/dL (8.5-10.1); CREATININE 1.3 mg/dL (0.6-1.3); MAGNESIUM 1.8 mg/dL (1.8-2.4); POTASSIUM 3.3 mmol/L (3.5-5.1); TOTAL PROTEIN, SERUM 6.6 g/dL (6.4-8.2)
[2018-12-15 08:00] VITALS: BP 148/72
--- NOTE | 2018-12-15 08:00 | NUR ---
MS RN AM NOTES PATIENT RECEIVED AWAKE, ALERT AND ORIENTED X 1, VERBALLY RESPONSIVE AND RESPONDS TO VERBAL AND TACTILE STIMULI. DENIES ANY PAIN OR DISCOMFORT. PATIENT RESTLESS, NOTED WITH CONTINUOUS ATTEMPTS TO REMOVE IV FROM RIGHT HAND. GERISLEEVE IN PLACE WITH IVF D5 NS AT 75 ML/HR INFUSING WELL. WITH SITTER AT BEDSIDE. REORIENT AND REDIRECT PATIENT NEEDED.WILL CONTINUE TO MONITOR. BED LOCKED AND IN LOW POSITION. BILATERAL UPPER SIDE RAILS UP AND LOCKED. CALL LIGHT WITHIN EASY REACH
[2018-12-15] MEDS: DOCUSATE SODIUM 100 MG CAPSULE PO SCH (09:35)
[2018-12-15] MEDS: QUETIAPINE FUMARATE 25 MG TABLET PO SCH ×2 (09:35→16:58)
[2018-12-15] MEDS: ASPIRIN EC 81 MG TABLET.DR PO SCH (09:35)
[2018-12-15] MEDS: hydrALAZINE HCL 25 MG TABLET PO SCH ×2 (09:36→16:58)
[2018-12-15] MEDS: MEMANTINE HCL 5 MG TABLET PO SCH (09:37)
[2018-12-15] MEDS: CARVEDILOL 3.125 MG TABLET PO SCH ×2 (09:37→16:57)
[2018-12-15] MEDS: FOLIC ACID 1 MG TABLET PO SCH (09:37)
[2018-12-15] MEDS ORDERED: POTASSIUM CHLORIDE 20 MEQ TAB.PRT.SR PO SCH (11:00)
[2018-12-15 16:00] VITALS: BP 123/74
[2018-12-15] MEDS: BISACODYL (5 MG) 5 MG TABLET.DR PO PRN (16:57)
[2018-12-15] MEDS: CEFTRIAXONE 1 G in IV D5W 50 ML IV SCH (17:13)
[2018-12-15] MEDS: ATORVASTATIN 10 MG TABLET PO SCH (17:46)
--- NOTE | 2018-12-15 18:00 | NUR ---
PT COMFORTABLY SLEEPING BUT AROUSABLE IN BED DENYING ANY PAIN OR DISTRESS.WITH 1:1SITTER AT THE BEDSIDE.CALL LIGHT PLACED WITHIN REACH.
--- NOTE | 2018-12-15 19:30 | NUR ---
MS RN PM OPENING NOTES PATIENT RECEIVED BEDSIDE REPORT FROM GERDA STROUD. PATIENT SEEN WITH EYES CLOSED IN NO APPARENT DISTRESS. SITTER [place] AT THE BEDSIDE. PATIENT PER REPORT ALERT AND ORIENTED X1 AND TRIES TO REMOVE IV SO SITTER AT BEDSIDE FOR SAFETY. GERISLEEVE IN PLACE TO RIGHT FOREARM PATIENT HAS RIGHT AC 18 GAUGE AND RIGHT HAND 20 GAUGE HEPLOCKED FLUSHING WITH NO S/S OF INFILTRATIO. PATIENT PER REPORT HAD GOOD PO INTAKE THROUGHOUT THE DAY. WILL CONTINUE TO MONITOR. BED LOCKED AND IN LOW POSITION. BILATERAL UPPER SIDE RAILS UP AND LOCKED. CALL LIGHT WITHIN EASY REACH
[2018-12-15 20:00] VITALS: BP 110/58
[2018-12-15 20:10] VITALS: BP 110/58
[2018-12-15] MEDS: SENNOSIDES 8.6 MG TABLET PO SCH (21:20)
[2018-12-16] MEDS: LEVOTHYROXINE SODIUM 75 MCG TABLET PO SCH ×2 (06:05→15:49)
[2018-12-16] MEDS: PANTOPRAZOLE 40 MG TABLET.DR PO SCH (06:06)
[2018-12-16] MEDS: NITROGLYCERIN PACKET 1 GM PACKET TOP SCH ×4 (06:09→23:27)
[2018-12-16 06:13] LABS: BASOPHILS % (AUTO) 0.3 % (0.0-2.0); EOSINOPHILS % (AUTO) 2.8 % (0.0-6.0); HEMATOCRIT 28 % (33-45); HEMOGLOBIN 9.6 g/dL (11.5-14.8); LYMPHOCYTES # (AUTO) 1.6 /CMM (0.8-4.8); LYMPHOCYTES % (AUTO) 28.6 % (20.0-44.0); MEAN CORPUSCULAR HGB CONC 35 g/dl (31.0-36.0); MEAN CORPUSCULAR VOLUME 84 fL (82-100); MONOCYTES # (AUTO) 0.5 /CMM (0.1-1.30); MONOCYTES % (AUTO) 8.4 % (2.0-12.0); NEUTROPHILS # (AUTO) 3.4 /CMM (1.8-8.9); NEUTROPHILS % (AUTO) 59.9 % (43.0-81.0); PLATELET COUNT (AUTO) 170 /CMM (150-450); WHITE BLOOD COUNT (AUTO) 5.7 K/uL (4.3-11.0)
--- NOTE | 2018-12-16 06:30 | NUR ---
RN PM CLOSING NOTE. PATIENT SEEN IN NO APPARENT DDISTRESS. DENIES PAIN. PATIENT SITTING UP IN CHAIR. PATIENT STILL HAS NO APPARENT DEFICITS IN MOVEMENT OF ARMS AND LEGS. SPEECH IS NOT SLURRED. DENIES PAIN . REORIENTED TO UNIT POLICIES PATIENT STATES "I WANT TO GO FOR A WALK UP AND DOWN [facility] INFORMED HE MUST STAY ON THE UNIT TILL DISCHARGE. PATIENT VERBALIZED UNDERSTANDING.
[2018-12-16 06:43] LABS: ALBUMIN 2.5 g/dL (3.4-5.0); BILIRUBIN,TOTAL 0.2 mg/dL (0.2-1.0); CREATININE 1.3 mg/dL (0.6-1.3); MAGNESIUM 1.5 mg/dL (1.8-2.4); POTASSIUM 3.8 mmol/L (3.5-5.1); TOTAL PROTEIN, SERUM 5.4 g/dL (6.4-8.2)
[2018-12-16 08:00] VITALS: BP 153/68
--- NOTE | 2018-12-16 08:00 | NUR ---
MS LUANNE AM NOTES PATIENT RECEIVED AWAKE, ALERT AND ORIENTED X 1, VERBALLY RESPONSIVE AND RESPONDS TO VERBAL AND TACTILE STIMULI. DENIES ANY PAIN OR DISCOMFORT. PATIENT CALM AND OCCASIONALLY RESTLESS BUT PLEASANT, NOTED WITH OCCASIONAL ATTEMPTS TO REMOVE IV H/L IN RIGHT HAND. GERISLEEVE IN PLACE. WITH SITTER AT BEDSIDE. REORIENT AND REDIRECT PATIENT NEEDED.WILL CONTINUE TO MONITOR. BED LOCKED AND IN LOW POSITION. BILATERAL UPPER SIDE RAILS UP AND LOCKED. CALL LIGHT WITHIN EASY REACH
[2018-12-16] MEDS: MEMANTINE HCL 5 MG TABLET PO SCH (09:50)
[2018-12-16] MEDS: FOLIC ACID 1 MG TABLET PO SCH (09:50)
[2018-12-16] MEDS: BISACODYL (5 MG) 5 MG TABLET.DR PO PRN (09:51)
[2018-12-16] MEDS: DOCUSATE SODIUM 100 MG CAPSULE PO SCH (09:51)
[2018-12-16] MEDS: hydrALAZINE HCL 25 MG TABLET PO SCH ×2 (09:51→17:40)
[2018-12-16] MEDS: QUETIAPINE FUMARATE 25 MG TABLET PO SCH ×2 (09:51→17:40)
[2018-12-16] MEDS: CARVEDILOL 3.125 MG TABLET PO SCH ×2 (09:51→17:40)
[2018-12-16] MEDS: ASPIRIN EC 81 MG TABLET.DR PO SCH (09:51)
--- NOTE | 2018-12-16 10:00 | NUR ---
MOVED PT TO ROOM 327-2 WITH HER BELONGINGS.FAMILY MADE AWARE.
[2018-12-16] MEDS: Magnesium 1GM/D5W 100ML PREMIX 100 ML IV SCH ×2 (10:48→12:09)
[2018-12-16 11:06] LABS: *SPE A/G RATIO 1.2 (0.7-1.7); *SPE ALBUMIN 3.2 g/dL (2.9-4.4); *SPE ALPHA-1-GLOBULIN 0.2 g/dL (0.0-0.4); *SPE ALPHA-2-GLOBULIN 0.7 g/dL (0.4-1.0); *SPE BETA GLOBULIN 0.7 g/dL (0.7-1.3); *SPE GLOBULIN, TOTAL 2.7 g/dL (2.2-3.9); *SPE M-SPIKE Not Observed g/dL (Not Observed)
[2018-12-16 12:06] LABS: PTH, INTACT 32 pg/mL (15-65)
[2018-12-16] MEDS ORDERED: NA PHOS,M-B/NA PHOS,DI-BA 1 EA ENEMA RC PRN (15:30)
[2018-12-16] MEDS: MAGNESIUM HYDROXIDE 30 ML UDC PO SCH ×2 (15:49→21:29)
--- NOTE | 2018-12-16 15:49 | NUR ---
FLEET ENEMA GIVEN VIA RECTUM WITH EFFECTIVE RESULTS.MADE XL SOFT BROWN STOOLS.GOOD PERICARE RENDERED.PT TOLERATED WELL.KEPT CLEAN AND DRY.
[2018-12-16 16:00] VITALS: BP_SYST 112; BP_SYST 121; BP_DIAS 51; BP_DIAS 88
[2018-12-16] MEDS: CEFTRIAXONE 1 G in IV D5W 50 ML IV SCH (17:39)
[2018-12-16] MEDS: ATORVASTATIN 10 MG TABLET PO SCH (17:43)
--- NOTE | 2018-12-16 18:00 | NUR ---
PT PULLED OUT HER TWO IV HEPLOCKS WITH MILD BLEEDING AND HER HOSPITAL GOWN WELL. KEPT CLEAN AND DRY.MOVED PT TO [place] [id number] WITH 1:1 SITTER. REFUSED DINNER.
[2018-12-16 18:49] VITALS: BP 112/51
--- NOTE | 2018-12-16 19:30 | NUR ---
MS RN OPENING NOTES RECEIVED PATIENT FROM MORNING SHIFT, ALERT AND ORIENTED X 1, FINNISH SPEAKING WITH NO DISTRESS NOTED. BREATHING REGULAR AND UNLABORED ON ROOM AIR. LEFT AC IV G22 INTACT AND PATENT FLUSHES WELL WITH NO BLEEDING OR S/S OF INFILTRATION/INFECTION NOTED. ON IV ATB FOR UTI WITH NO ADVERSE REACTIONS NOTED. CALL LIGHT IN REACH, BED LOW AND LOCKED. WILL CONTINUE TO MONITOR.
[2018-12-16] MEDS: SENNOSIDES 8.6 MG TABLET PO SCH (21:30)
[2018-12-17] MEDS: NITROGLYCERIN PACKET 1 GM PACKET TOP SCH ×3 (05:26→17:14)
[2018-12-17 06:26] LABS: BASOPHILS % (AUTO) 0.4 % (0.0-2.0); EOSINOPHILS % (AUTO) 2.3 % (0.0-6.0); HEMATOCRIT 30 % (33-45); HEMOGLOBIN 10.4 g/dL (11.5-14.8); LYMPHOCYTES # (AUTO) 1.4 /CMM (0.8-4.8); LYMPHOCYTES % (AUTO) 23.3 % (20.0-44.0); MEAN CORPUSCULAR HGB CONC 34 g/dl (31.0-36.0); MEAN CORPUSCULAR VOLUME 84 fL (82-100); MONOCYTES # (AUTO) 0.5 /CMM (0.1-1.30); NEUTROPHILS # (AUTO) 3.8 /CMM (1.8-8.9); PLATELET COUNT (AUTO) 204 /CMM (150-450); RED BLOOD CELL COUNT(AUTO) 3.61 MIL/uL (4.0-5.2); WHITE BLOOD COUNT (AUTO) 5.9 K/uL (4.3-11.0)
[2018-12-17 06:37] LABS: CALCIUM, SERUM 8.4 mg/dL (8.5-10.1); CREATININE 1.1 mg/dL (0.6-1.3); MAGNESIUM 2.8 mg/dL (1.8-2.4)
--- NOTE | 2018-12-17 07:06 | NUR ---
MS RN CLOSING NOTES PATIENT IN BED, ALERT AND ORIENTED X 1 WITH EPISODE OF CONFUSION, IRAQI SPEAKING. BREATHING REGULAR AND UNLABORED ON ROOM AIR. LEFT AC IV G22 INTACT AND PATENT FLUSHES WELL WITH NO BLEEDING OR S/S OF INFILTRATION/INFECTION NOTED. NOTED WITH LARGE BM. STILL SEEN WITH SACRAL REDNESS, ZGUARD APPLIED, REPOSITIONED EVERY 2HRS AND NEEDED. CALL LIGHT IN REACH, BED LOW AND LOCKED. WILL ENDORSE TO MORNING SHIFT FOR TODD.
[2018-12-17 08:00] VITALS: BP 167/85
--- NOTE | 2018-12-17 08:00 | NUR ---
MS RN OPENING NOTES RECEIVED PATIENT FROM MORNING SHIFT, ALERT AND ORIENTED X 1, [place] SPEAKING WITH NO DISTRESS NOTED. BREATHING REGULAR AND UNLABORED ON ROOM AIR. WITH 1:1 SITTER.LEFT AC IV G22 INTACT AND PATENT FLUSHES WELL WITH NO BLEEDING OR S/S OF INFILTRATION/INFECTION NOTED. ON IV ATB FOR UTI WITH NO ADVERSE REACTIONS NOTED. CALL LIGHT IN REACH, BED LOW AND LOCKED. WILL CONTINUE TO MONITOR.
[2018-12-17] MEDS: LEVOTHYROXINE SODIUM 75 MCG TABLET PO SCH ×2 (08:59→17:15)
[2018-12-17] MEDS: PANTOPRAZOLE 40 MG TABLET.DR PO SCH (08:59)
[2018-12-17] MEDS: QUETIAPINE FUMARATE 25 MG TABLET PO SCH ×2 (08:59→17:15)
[2018-12-17] MEDS: FOLIC ACID 1 MG TABLET PO SCH (08:59)
[2018-12-17] MEDS: MEMANTINE HCL 5 MG TABLET PO SCH (08:59)
[2018-12-17] MEDS: ASPIRIN EC 81 MG TABLET.DR PO SCH (08:59)
[2018-12-17] MEDS: hydrALAZINE HCL 25 MG TABLET PO SCH ×3 (09:00→17:14)
[2018-12-17] MEDS: CARVEDILOL 3.125 MG TABLET PO SCH ×2 (09:00→17:14)
[2018-12-17] MEDS: DOCUSATE SODIUM 100 MG CAPSULE PO SCH (09:00)
[2018-12-17 11:55] VITALS: BP 120/58
[2018-12-17 17:14] VITALS: BP 140/76
[2018-12-17] MEDS: ATORVASTATIN 10 MG TABLET PO SCH (17:15)
--- NOTE | 2018-12-17 17:25 | NUR ---
DISCHARGED PT TO [facility] VIA AMBULANCE WITH STABLE V/S. REPORT CALLED IN TO LUANNE VILLARREAL OF [facility]. IV H/L REMOVED TO LT AC WITHOUT BLEEDING NOTED.FAMILY AT BEDSIDE AND WILL FOLLOW THE AMBULANCE HEADING TO [facility].PT DENIES ANY PAIN OR DISTRESS.
== END 2018-12-17 17:27 | DRG 682 ==
LOC: ER 13:39 → MEDSG2 20:06 → MED 21:07 → TELE 22:28 → MED 12-14 09:26
PROVIDERS: ADMIT Hospitalist; ATTEND Legal Medicine
DX: N17.0 Acute kidney failure with tubular necrosis (principal); G93.41 Metabolic encephalopathy; N39.0 Urinary tract infection, site not specified; I50.32 Chronic diastolic (congestive) heart failure; E03.9 Hypothyroidism, unspecified; I25.10 Atherosclerotic heart disease of native coronary artery without angina pectoris; E86.0 Dehydration; I11.0 Hypertensive heart disease with heart failure; D64.9 Anemia, unspecified; E78.5 Hyperlipidemia, unspecified; G30.9 Alzheimer's disease, unspecified; F02.80 Dementia in other diseases classified elsewhere, unspecified severity, without behavioral disturbance, psychotic disturbance, mood disturbance, and anxiety; K21.9 Gastro-esophageal reflux disease without esophagitis; R53.1 Weakness; K59.00 Constipation, unspecified
CPT/HCPCS: 36415; 71045-TC; 76770-TC; 80048-TC; 80053-TC; 80061-TC; 80076-TC; 81000-TC; 82140-TC; 82550-TC; 82570-TC; 83605-TC; 83690-TC; 83735-TC; 83880; 83970; 84100-TC; 84155; 84155-TC; 84165; 84300-TC; 84439-TC; 84443-TC; 84484-TC; 85025-TC; 85730-TC; 87040-TC; 87081-TC; 87086-TC; 92526; 92611-TC; G0378; G0480; J0360; J0696; J2405; J3475; J3490; J7042; J7060